=== PATIENT | male | born 1955 | race Caucasian/White ===

== ENCOUNTER 2017-11-09 19:58 | Emergency (ER) | payer OTHER, MEDICAID ==
[2017-11-09] MEDS ORDERED: ASPIRIN 81 MG TABLET, CHEWABLE PO ONE (20:06)
--- NOTE | 2017-11-09 20:37 | ER Document Report ---
ED General <MAURICEDAVID - Last Filed: 11/09/17 23:22> - General Mode of Arrival: Ambulatory Information source: Patient TRAVEL OUTSIDE OF THE [place] IN LAST 30 DAYS: No <JAY BYRD - Last Filed: 11/12/17 14:14> - General Chief Complaint: Painful Cough Stated Complaint: CHEST PAIN Time Seen by Provider: 11/09/17 20:23 Notes: Patient is a 62-year-old male with a history of a cardiac stent (2012, [facility]) presents to the emergency department from assisted complaining of chest pain onset 2 weeks ago worsening 2 days ago. Patient describes his chest pain as chest tightness. According to [facility] records patient had similar symptoms in 2013 which was followed by a negative stress test. (JAY BYRD) - Related Data Allergies/Adverse Reactions: No Known Allergies Allergy (Verified 04/25/14 18:54) Past Medical History - General Information source: Patient - Social History Smoking Status: Unknown if Ever Smoked Family History: Reviewed & Not Pertinent - Past Medical History Cardiac Medical History: Reports: Hx Hypercholesterolemia, Hx Hypertension Pulmonary Medical History: Reports: Hx COPD Renal/ Medical History: Reports: Hx Kidney Stones Psychiatric Medical History: Reports: Hx Depression Past Surgical History: Reports: Hx Cholecystectomy, Hx Kidney (Renal Surgery) - Left Nepherctomy - Immunizations Hx Diphtheria, Pertussis, Tetanus Vaccination: Yes Hx Pneumococcal Vaccination: 04/29/14 <JAY BYRD - Last Filed: 11/12/17 14:14> Review of Systems - Review of Systems Constitutional: No symptoms reported EENT: No symptoms reported Cardiovascular: See HPI, Chest pain Respiratory: No symptoms reported Gastrointestinal: No symptoms reported Genitourinary: No symptoms reported Male Genitourinary: No symptoms reported Musculoskeletal: No symptoms reported Skin: No symptoms reported Hematologic/Lymphatic: No symptoms reported Neurological/Psychological: No symptoms reported -: Yes All other systems reviewed and negative <JAY BYRD - Last Filed: 11/12/17 14:14> Physical Exam - General General appearance: Appears well, Alert In distress: None - HEENT Head: Normocephalic, Atraumatic Eyes: Normal Conjunctiva: Normal Extraocular movements intact: Yes Pupils: PERRL Neck: Normal - Respiratory Respiratory status: No respiratory distress Chest status: Tender - Tender to palpation left parasternal border Breath sounds: Normal Chest palpation: Normal - Cardiovascular Rhythm: Regular Heart sounds: Normal auscultation Murmur: No Friction rub: No Gallop: None auscultated - Back Back: Normal - Extremities General upper extremity: Normal inspection, Normal ROM General lower extremity: Normal inspection, Normal ROM - Neurological Neuro grossly intact: Yes Cognition: Normal Orientation: AAOx4 [place] Coma Scale Eye Opening: Spontaneous Ned Coma Scale Verbal: Oriented Ned Coma Scale Motor: Obeys Commands Ned Coma Scale Total: 15 Speech: Normal - Psychological Associated symptoms: Normal affect, Normal mood - Skin Skin Temperature: Warm Skin Moisture: Dry Skin Color: Normal <JAY BYRD - Last Filed: 11/12/17 14:14> - Vital signs Vitals: Resp Pulse Ox 14 99 11/09/17 20:35 11/09/17 20:35 Course - Laboratory Result Diagrams: 11/09/17 20:45 11/09/17 20:45 - Diagnostic Test Radiology reviewed: Image reviewed, Reports reviewed - Chest x-ray does not show any acute process is unremarkable. - EKG Interpretation by Ks EKG shows normal: Sinus rhythm, [place], Intervals, QRS Complexes, ST-T Waves Rate: Normal - 56 Rhythm: NSR <DAVID RICHARDS - Last Filed: 11/09/17 23:22> - Laboratory Result Diagrams: 11/09/17 20:45 11/09/17 20:45 <JAY BYRD - Last Filed: 11/12/17 14:14> - Vital Signs Vital signs: Temp Pulse Resp BP Pulse Ox 97.8 F 12 136/81 H 99 11/09/17 22:27 11/09/17 22:27 11/09/17 22:27 11/09/17 22:27 - Laboratory Laboratory results interpreted by ny: 11/09/17 20:45 Carbon Dioxide 32 H BUN 22 H Total Protein 6.1 L Discharge <DAVID RICHARDS - Last Filed: 11/09/17 23:22> <JAY BYRD - Last Filed: 11/12/17 14:14> - Discharge Clinical Impression: Chest wall pain Condition: Stable Disposition: HOME, SELF-CARE Additional Instructions: Chest Wall Pain Your chest pain has been diagnosed as coming from the chest wall. This is often caused by straining the muscles or joints in the chest during physical activity, direct trauma, coughing, or vigorous vomiting. Persons with arthritis are especially prone to this type of pain, due to inflammation of the cartilage joints near the breast bone. Occasionally, no cause can be found. Rest from strenuous physical activity. This kind of chest pain is usually made worse by movement of the chest. Depending on the symptoms, we may prescribe medicine for pain, muscle relaxation, and antiinflammatory effects. If the pain is new, and seems to be due to muscle strain, cold packs can help. Otherwise, apply gentle warmth to the painful area for 15 minutes every hour or two. You should contact the doctor immediately if things change. Further evaluation is needed if you develop a fever or cough, if the nature of the pain changes, or if you become short of breath. Your chest pain does not appear to be related to your heart on this visit. Follow-up with the health care providers in the assisted as needed. RETURN TO THE EMERGENCY ROOM IF ANY NEW OR WORSENING SYMPTOMS. Scribe Attestation: 11/09/17 23:22 I personally performed the services described in the documentation, reviewed and edited the documentation which was dictated to the scribe in my presence, and it accurately records my words and actions. (DAVID RICHARDS)
[2017-11-09 20:56] LABS: ABSOLUTE BASOPHILS # (AUTO) 0.1 10^3/uL (0.0-0.2); ABSOLUTE EOSINOPHILS # (AUTO) 0.2 10^3/uL (0.0-0.6); ABSOLUTE LYMPHOCYTES (AUTO) 2.5 10^3/uL (0.5-4.7); ABSOLUTE MONOCYTES (AUTO) 0.8 10^3/uL (0.1-1.4); ABSOLUTE NEUT (AUTO) 5.7 10^3/uL (1.7-8.2); BASOPHILS % (AUTO) 1.2 % (0-2); EOSINOPHILS % (AUTO) 2.6 % (0-6); HEMOGLOBIN 14.7 g/dL (13.5-17.0); MEAN CORPUSCULAR HGB CONC 34.3 g/dL (32.0-36.0); MEAN CORPUSCULAR VOLUME 94 fl (80-97); MONOCYTES % (AUTO) 8.2 % (3-13); PLATELET COUNT 207 10^3/uL (150-450); RED CELL DISTRIBUTION WIDTH 13.8 % (11.5-14.0); TOTAL CELLS COUNTED % (AUTO) 100 %; WHITE BLOOD COUNT 9.4 10^3/uL (4.0-10.5)
[2017-11-09 21:16] LABS: ALANINE AMINOTRANSFERASE 24 U/L (21-72); ALBUMIN 3.6 g/dL (3.5-5.0); ALKALINE PHOSPHATASE 66 U/L (38-126); ANION GAP 9 (5-19); ASPARTATE AMINO TRANSFERASE 20 U/L (17-59); BILIRUBIN,DIRECT 0.3 mg/dL (0.0-0.4); BILIRUBIN,TOTAL 0.4 mg/dL (0.2-1.3); BLOOD UREA NITROGEN 22 mg/dL (7-20); CALCIUM 9.3 mg/dL (8.4-10.2); CARBON DIOXIDE 32 mmol/L (22-30); CHLORIDE 102 mmol/L (98-107); CREATINE KINASE 58 U/L (55-170); GLUCOSE 92 mg/dL (75-110); POTASSIUM 4.2 mmol/L (3.6-5.0); SODIUM 142.5 mmol/L (137-145); TOTAL PROTEIN 6.1 g/dL (6.3-8.2)
--- NOTE | 2017-11-09 21:24 | RADIOLOGY REPORT (SQ) ---
EXAM DESCRIPTION: CHEST SINGLE VIEW COMPLETED DATE/TIME: 11/09/2017 9:16 pm REASON FOR STUDY: cp COMPARISON: 05/06/2014 EXAM PARAMETERS: NUMBER OF VIEWS: One view. TECHNIQUE: Single frontal radiographic view of the chest acquired. RADIATION DOSE: NA LIMITATIONS: None. FINDINGS: LUNGS AND PLEURA: No opacities, masses or pneumothorax. No pleural effusion. MEDIASTINUM AND HILAR STRUCTURES: No masses. Contour normal. HEART AND VASCULAR STRUCTURES: Heart normal in size. Normal vasculature. BONES: No acute findings. HARDWARE: None in the chest. OTHER: No other significant finding. IMPRESSION: NO ACUTE RADIOGRAPHIC FINDING IN THE CHEST. TECHNICAL DOCUMENTATION: JOB ID: [id number] [employer]- All Rights Reserved Reading location - IP/workstation name: [email or web address]
[2017-11-09 21:25] LABS: TROPONIN I < 0.012 ng/mL
[2017-11-09 22:41] VITALS: BP 136/81
--- NOTE | 2017-11-09 23:05 | EKG REPORT ---
SEVERITY:- NORMAL ECG - SINUS RHYTHM CONSIDER INFERIOR CA OLD : Confirmed by: Clary Morrison 09-Nov-2017 23:05:01
== END 2017-11-09 22:30 | disposition home or self-care (01) ==
LOC: ER 19:58
DX: R07.89 Other chest pain (principal); R05 Cough; R06.00 Dyspnea, unspecified; E78.00 Pure hypercholesterolemia, unspecified; I10 Essential (primary) hypertension; J44.9 Chronic obstructive pulmonary disease, unspecified; Z87.442 Personal history of urinary calculi; Z90.49 Acquired absence of other specified parts of digestive tract
CPT/HCPCS: 36415; 71045; 80053; 82550; 82553; 84484; 85025; 93005; 93010; 99285

== ENCOUNTER 2018-02-11 08:10 | Emergency (ER) | payer OTHER, MEDICAID ==
--- NOTE | 2018-02-11 09:06 | ER Document Report ---
ED General - General Chief Complaint: Abdominal Pain Stated Complaint: STOMACH PAIN Time Seen by Provider: 02/11/18 09:01 Notes: 63-year-old incarcerated individual to the emergency department at request of medical at the [facility] for evaluation of abdominal pain. Patient has been complaining of intermittent abdominal pain and change in bowel habits. Had x- ray which was reportedly read as an ileus. No significant pain at this time. No fever, chills, sweats. TRAVEL OUTSIDE OF THE [place] IN LAST 30 DAYS: No - HPI Onset/Duration: Gradual Quality of pain: Achy - Related Data Allergies/Adverse Reactions: No Known Allergies Allergy (Verified 02/11/18 08:11) Past Medical History - General Information source: Patient - Social History Smoking Status: Current Some Day Smoker Chew tobacco use (# tins/day): No Frequency of alcohol use: None Drug Abuse: None Family History: Reviewed & Not Pertinent - Past Medical History Cardiac Medical History: Reports: Hx Hypercholesterolemia, Hx Hypertension Pulmonary Medical History: Reports: Hx COPD Renal/ Medical History: Reports: Hx Kidney Stones. Denies: Hx Peritoneal Dialysis Psychiatric Medical History: Reports: Hx Depression Past Surgical History: Reports: Hx Cholecystectomy, Hx Kidney (Renal Surgery) - Left Nepherctomy - Immunizations Hx Diphtheria, Pertussis, Tetanus Vaccination: Yes Hx Pneumococcal Vaccination: 04/29/14 Review of Systems - Review of Systems Constitutional: No symptoms reported EENT: No symptoms reported Cardiovascular: No symptoms reported Respiratory: No symptoms reported Gastrointestinal: Abdomen distended, Abdominal pain, Constipation Genitourinary: No symptoms reported Male Genitourinary: No symptoms reported Musculoskeletal: No symptoms reported Skin: No symptoms reported Hematologic/Lymphatic: No symptoms reported Neurological/Psychological: No symptoms reported Physical Exam - Vital signs Vitals: Temp Pulse Resp BP Pulse Ox 98.3 F 66 18 122/72 97 02/11/18 08:29 02/11/18 08:29 02/11/18 08:29 02/11/18 08:29 02/11/18 08:29 Interpretation: Normal - General General appearance: Appears well, Alert - HEENT Head: Normocephalic, Atraumatic Eyes: Normal Pupils: PERRL - Respiratory Respiratory status: No respiratory distress Chest status: Nontender Breath sounds: Normal Chest palpation: Normal - Cardiovascular Rhythm: Regular Heart sounds: Normal auscultation Murmur: No - Abdominal Inspection: Normal Distension: No distension Bowel sounds: Normal Tenderness: Nontender Organomegaly: No organomegaly - Back Back: Normal, Nontender - Extremities General upper extremity: Normal inspection, Nontender, Normal color, Normal ROM , Normal temperature General lower extremity: Normal inspection, Nontender, Normal color, Normal ROM , Normal temperature, Normal weight bearing. No: Veto's sign - Neurological Neuro grossly intact: Yes Cognition: Normal Orientation: AAOx4 [place] Coma Scale Eye Opening: Spontaneous Ned Coma Scale Verbal: Oriented [place] Coma Scale Motor: Obeys Commands Ned Coma Scale Total: 15 Speech: Normal Motor strength normal: LUE, RUE, LLE, RLE Sensory: Normal - Psychological Associated symptoms: Normal affect, Normal mood - Skin Skin Temperature: Warm Skin Moisture: Dry Skin Color: Normal Course - Re-evaluation Re-evalutation: 02/11/18 10:21 X-ray has slightly abnormal bowel gas pattern. Spoke with the care home provider who states that the x-ray was done by an outside service and read as an ileus. Will proceed with CT scan at this time. 02/11/18 10:22 Acute Abdomen Series 02/11/18 09:07 IMPRESSION: Nonobstructed, nonspecific, mildly abnormal bowel gas pattern. 02/11/18 14:20 Laboratory 02/11/18 02/11/18 02/11/18 09:25 09:25 09:55 WBC 6.7 RBC 4.63 Hgb 15.1 Hct 43.6 MCV 94 MCH 32.6 MCHC 34.7 RDW 13.8 Plt Count 178 Seg Neutrophils % 67.5 Lymphocytes % 22.4 Monocytes % 7.5 Eosinophils % 2.2 Basophils % 0.4 Absolute Neutrophils 4.5 Absolute Lymphocytes 1.5 Absolute Monocytes 0.5 Absolute Eosinophils 0.1 Absolute Basophils 0.0 Sodium 144.5 Potassium 4.2 Chloride 105 Carbon Dioxide 29 Anion Gap 11 BUN 20 Creatinine 1.14 Est GFR ( Amer) > 60 Est GFR (Non-Af Amer) > 60 Glucose 86 Calcium 9.0 Total Bilirubin 0.6 Direct Bilirubin 0.2 Neonat Total Bilirubin Not Reportable Neonat Direct Bilirubin Not Reportable Neonat Indirect Bili Not Reportable AST 19 ALT 23 Alkaline Phosphatase 72 Total Protein 6.4 Albumin 3.7 Urine Color YELLOW Urine Appearance CLOUDY Urine pH 8.0 Ur Specific [place] 1.009 Urine Protein NEGATIVE Urine Glucose (UA) NEGATIVE Urine Ketones NEGATIVE Urine Blood NEGATIVE Urine Nitrite NEGATIVE Urine Bilirubin NEGATIVE Urine Urobilinogen NEGATIVE Ur Leukocyte Esterase NEGATIVE Urine WBC (Auto) 3 Urine RBC (Auto) 0 Urine Bacteria (Auto) TRACE Amorphous Sediment Auto TRACE Urine Ascorbic Acid NEGATIVE Acute Abdomen Series 02/11/18 09:07 IMPRESSION: Nonobstructed, nonspecific, mildly abnormal bowel gas pattern. Abdomen/Pelvis CT 02/11/18 10:17 IMPRESSION: 1. No CT evidence of acute intra-abdominal process 2. 2.4 cm hypodense mass in the mid right kidney. This may represent a simple cyst however no comparisons are available and this mass is not completely evaluated on this single phase contrast study. Recommend correlation with any prior imaging if available. If no prior imaging is available, a dedicated renal CT or MRI is recommended for further characterization. No significant pathology seen on CT. Incidental finding of renal cyst. This information was given to the patient for follow-up evaluation.. Comfortable at this time discharging. - Vital Signs Vital signs: Temp Pulse Resp BP Pulse Ox 98.3 F 66 18 122/72 97 02/11/18 08:29 02/11/18 08:29 02/11/18 08:29 02/11/18 08:29 02/11/18 08:29 - Laboratory Result Diagrams: 02/11/18 09:25 02/11/18 09:25 Discharge - Discharge Clinical Impression: Intermittent constipation, Renal cyst, left Abdominal pain Qualifiers: Abdominal location: generalized Qualified Code(s): R10.84 - Generalized abdominal pain Condition: Good Disposition: HOME, SELF-CARE Instructions: Abdominal Pain ([facility]) Additional Instructions: Please follow-up with your providers to have repeat evaluation done if symptoms persist. Incidental findings of a cyst was seen on your kidney. This will need a dedicated evaluation in the future as well.
[2018-02-11 09:41] LABS: ABSOLUTE EOSINOPHILS # (AUTO) 0.1 10^3/uL (0.0-0.6); ABSOLUTE LYMPHOCYTES (AUTO) 1.5 10^3/uL (0.5-4.7); ABSOLUTE MONOCYTES (AUTO) 0.5 10^3/uL (0.1-1.4); ABSOLUTE NEUT (AUTO) 4.5 10^3/uL (1.7-8.2); BASOPHILS % (AUTO) 0.4 % (0-2); EOSINOPHILS % (AUTO) 2.2 % (0-6); HEMATOCRIT 43.6 % (37.9-51.0); HEMOGLOBIN 15.1 g/dL (13.5-17.0); LYMPHOCYTES % (AUTO) 22.4 % (13-45); MEAN CORPUSCULAR HEMOGLOBIN 32.6 pg (27.0-33.4); MEAN CORPUSCULAR HGB CONC 34.7 g/dL (32.0-36.0); MEAN CORPUSCULAR VOLUME 94 fl (80-97); MONOCYTES % (AUTO) 7.5 % (3-13); PLATELET COUNT 178 10^3/uL (150-450); RED BLOOD COUNT 4.63 10^6/uL (4.35-5.55); RED CELL DISTRIBUTION WIDTH 13.8 % (11.5-14.0); SEGMENTED NEUTROPHILS % (AUTO) 67.5 % (42-78); TOTAL CELLS COUNTED % (AUTO) 100 %; WHITE BLOOD COUNT 6.7 10^3/uL (4.0-10.5)
--- NOTE | 2018-02-11 09:55 | RADIOLOGY REPORT (SQ) ---
EXAM DESCRIPTION: ACUTE ABDOMEN SERIES COMPLETED DATE/TIME: 02/11/2018 9:45 am REASON FOR STUDY: abd pain COMPARISON: None. NUMBER OF VIEWS: Three views. TECHNIQUE: Frontal chest, supine abdomen and upright/decubitus abdomen radiographic images acquired. LIMITATIONS: None. FINDINGS: CHEST: Lungs clear of infiltrates. FREE AIR: None. No abnormal gas collections. BOWEL GAS PATTERN: There are no dilated loops of small bowel or air-fluid levels, however there are m ultiple prominent air-filled loops of small bowel in the left lower quadrant. CALCIFICATIONS: No suspicious calcifications. HARDWARE: Surgical clips in the right upper quadrant. SOFT TISSUES: No gross mass or suggestion of organomegaly. BONES: No acute fracture. No worrisome bone lesions. OTHER: No other significant finding. IMPRESSION: Nonobstructed, nonspecific, mildly abnormal bowel gas pattern. TECHNICAL DOCUMENTATION: JOB ID: [id number] [employer]- All Rights Reserved Reading location - IP/workstation name: [email or web address]
[2018-02-11 09:58] LABS: ALANINE AMINOTRANSFERASE 23 U/L (21-72); ALBUMIN 3.7 g/dL (3.5-5.0); ALKALINE PHOSPHATASE 72 U/L (38-126); ANION GAP 11 (5-19); ASPARTATE AMINO TRANSFERASE 19 U/L (17-59); BILIRUBIN,DIRECT 0.2 mg/dL (0.0-0.4); BILIRUBIN,TOTAL 0.6 mg/dL (0.2-1.3); BLOOD UREA NITROGEN 20 mg/dL (7-20); CARBON DIOXIDE 29 mmol/L (22-30); CHLORIDE 105 mmol/L (98-107); GLUCOSE 86 mg/dL (75-110); POTASSIUM 4.2 mmol/L (3.6-5.0); SODIUM 144.5 mmol/L (137-145); TOTAL PROTEIN 6.4 g/dL (6.3-8.2)
[2018-02-11 10:16] LABS: AMORPHOUS SEDIMENT,URINE TRACE /HPF; APPEARANCE,URINE CLOUDY; BILIRUBIN,URINE NEGATIVE (NEGATIVE); COLOR,URINE YELLOW; GLUCOSE, URINE NEGATIVE (NEGATIVE); KETONES,URINE NEGATIVE (NEGATIVE); LEUKOCYTE ESTERASE,URINE NEGATIVE (NEGATIVE); NITRITE,URINE NEGATIVE (NEGATIVE); PROTEIN,URINE NEGATIVE (NEGATIVE); URINE SPECIFIC GRAVITY 1.009; UROBILINOGEN,URINE NEGATIVE mg/dL (<2.0)
--- NOTE | 2018-02-11 14:04 | RADIOLOGY REPORT (SQ) ---
EXAM DESCRIPTION: CT ABD/PELVIS WITH IV ORAL COMPLETED DATE/TIME: 02/11/2018 1:33 pm REASON FOR STUDY: abd pain , ? Ileus on outside films COMPARISON: 02/11/2018 TECHNIQUE: CT scan of the abdomen and pelvis performed using helical scanning technique with dynamic intravenous contrast injection. No oral contrast. Images reviewed with lung, soft tissue, and bone windows. Reconstructed coronal and sagittal MPR images reviewed. Delayed images for evaluation of the urinary system also acquired. All images stored on PACS. All CT scanners at this facility use dose modulation, iterative reconstruction, and/or weight based d osing when appropriate to reduce radiation dose to as low as reasonably achievable (ALARA). [facility]: Dose Right [facility]: CareDose [facility]: Dose Right [facility]: Teradose 4D [facility]: Dely CONTRAST TYPE AND DOSE: contrast/concentration: Isovue 300.00 mg/ml; Total Contrast Delivered: 97.0 ml; Total Saline Delivered: 66.0 ml RENAL FUNCTION: GFR > 60. RADIATION DOSE: CT Rad equipment meets quality standard of care and radiation dose reduction techniq ues were employed. CTDIvol: 20.6 - 20.8 mGy. DLP: 2315 mGy-cm.. LIMITATIONS: None. FINDINGS: LOWER CHEST: Some scarring in the lung bases. There is a calcified granuloma noted in the right lung base as well. LIVER: Normal size. No masses. No dilated ducts. SPLEEN: Normal size. No focal lesions. PANCREAS: No masses. No significant calcifications. No adjacent inflammation or peripancreatic fluid collections. Pancreatic duct not dilated. GALLBLADDER: Surgically absent. ADRENAL GLANDS: No significant masses or asymmetry. RIGHT KIDNEY AND URETER: There is a 2.4 cm hypodense mass in the mid right kidney. This is not clear ly a simple cyst on this examination. No significant calcifications. No hydronephrosis or hydrour eter. LEFT KIDNEY AND URETER: The left kidney is absent. AORTA AND VESSELS: No aneurysm or dissection. RETROPERITONEUM: No retroperitoneal adenopathy, hemorrhage or masses. BOWEL AND PERITONEAL CAVITY: No masses or inflammatory changes. No free fluid or peritoneal masses. APPENDIX: Not visualized. PELVIS: No mass. No free fluid. Normal bladder. ABDOMINAL WALL: No masses. No hernias. BONES: No significant or acute findings. OTHER: No other significant finding. IMPRESSION: 1. No CT evidence of acute intra-abdominal process 2. 2.4 cm hypodense mass in the mid right kidney. This may represent a simple cyst however no chano risons are available and this mass is not completely evaluated on this single phase contrast study. Recommend correlation with any prior imaging if available. If no prior imaging is available, a dedic ated renal CT or MRI is recommended for further characterization. TECHNICAL DOCUMENTATION: JOB ID: [id number] Quality ID # [id number]: Final reports with documentation of one or more dose reduction techniques (e.g., Au tomated exposure control, adjustment of the mA and/or kV according to patient size, use of iterative reconstruction technique) 2010 [employer]- All Rights Reserved Reading location - IP/workstation name: [email or web address]
[2018-02-11 15:30] VITALS: BP 125/59
== END 2018-02-11 15:30 | disposition home or self-care (01) ==
LOC: ER 08:10
DX: K59.00 Constipation, unspecified (principal); Q61.01 Congenital single renal cyst; R10.84 Generalized abdominal pain; F17.200 Nicotine dependence, unspecified, uncomplicated; I10 Essential (primary) hypertension; Z87.442 Personal history of urinary calculi; Z90.49 Acquired absence of other specified parts of digestive tract; Z90.5 Acquired absence of kidney
CPT/HCPCS: 36415; 74022; 74177; 80053; 81001; 85025; 99285

== ENCOUNTER → 2018-03-01 | Outpatient (CLI) | payer OTHER ==
--- NOTE | 2018-03-01 17:25 | RADIOLOGY REPORT (SQ) ---
EXAM DESCRIPTION: CT ABD/PELVIS COMBO COMPLETED DATE/TIME: 03/01/2018 10:24 am REASON FOR STUDY: RENAL MASS COMPARISON: 02/11/2018 TECHNIQUE: CT scan of the abdomen and pelvis performed with and without intravenous contrast, and wi thout oral contrast. Contrasted imaging performed helical scanning technique and dynamic intravenous contrast injection. Images reviewed with lung, soft tissue, and bone windows. Reconstructed coronal a nd sagittal MPR images reviewed. Delayed images for evaluation of the urinary system also acquired. A ll images stored on PACS. All CT scanners at this facility use dose modulation, iterative reconstruction, and/or weight based d osing when appropriate to reduce radiation dose to as low as reasonably achievable (ALARA). [facility]: Dose Right [facility]: CareDose [facility]: Dose Right [facility]: Teradose 4D [facility]: Zoomingo CONTRAST TYPE AND DOSE: contrast/concentration: Isovue 300.00 mg/ml; Total Contrast Delivered: 59.0 ml; Total Saline Delivered: 80.0 ml RENAL FUNCTION: Creatinine 1.1 RADIATION DOSE: CT Rad equipment meets quality standard of care and radiation dose reduction techniq ues were employed. CTDIvol: 19.6 - 45.1 mGy. DLP: 4757 mGy-cm. . LIMITATIONS: None. FINDINGS: NON-CONTRASTED IMAGING: No significant renal or bladder calcifications. No other significa nt organ calcifications. POST-CONTRASTED IMAGING: LOWER CHEST: 1 cm calcified granuloma anterior right lung base LIVER: Normal size. No masses. No dilated ducts. SPLEEN: Normal size. No focal lesions. PANCREAS: No masses. No significant calcifications. No adjacent inflammation or peripancreatic fluid collections. Pancreatic duct not dilated. GALLBLADDER: Surgically absent ADRENAL GLANDS: No significant masses or asymmetry. RIGHT KIDNEY AND URETER: No solid masses. 2.5 cm x 2 cm nonenhancing right posterior midpole cyst wi th punctate calcification in the posterior wall this is similar compared to 02/11/2018. Less than 1 c m cysts are also seen in the right midpole and right lower pole kidney of doubtful clinical significa nce. No right urinary stones No hydronephrosis or hydroureter. LEFT KIDNEY AND URETER: Post nephrectomy. AORTA AND VESSELS: No aneurysm. No dissection. Renal arteries, SMA, celiac without stenosis. RETROPERITONEUM: No retroperitoneal adenopathy, hemorrhage or masses. BOWEL AND PERITONEAL CAVITY: No masses or inflammatory changes. No free fluid or peritoneal masses. APPENDIX: Not identified. No right lower quadrant inflammatory change PELVIS: No mass. No free fluid. Normal bladder. ABDOMINAL WALL: No masses. No hernias. BONES: No significant or acute findings. OTHER: No other significant finding. IMPRESSION: Old left nephrectomy and post cholecystectomy. 2.5 x 2 cm cyst with punctate calcification in its posterior wall, along the right posterior mid pole kidney. No worrisome contrast enhancement. This could be followed with periodic renal ultrasound TECHNICAL DOCUMENTATION: JOB ID: [id number] Quality ID # [id number]: Final reports with documentation of one or more dose reduction techniques (e.g., Au tomated exposure control, adjustment of the mA and/or kV according to patient size, use of iterative reconstruction technique) 2010 [employer] All Rights Reserved Reading location - IP/workstation name: [email or web address]
== END ==
LOC: RAD 09:50
PROVIDERS: ATTEND Family Medicine
DX: N28.9 Disorder of kidney and ureter, unspecified (principal)
CPT/HCPCS: 74178

== ENCOUNTER 2018-05-18 22:53 | Inpatient (IN) | payer OTHER ==
--- NOTE | 2018-05-18 23:13 | ER Document Report ---
ED General - General Stated Complaint: CHEST PAIN Time Seen by Provider: 05/18/18 23:01 Notes: Patient is a 63-year-old male who presents with complaint of some dyspnea and chest pain. He says he is felt like a pressure in his chest has been ongoing for approximately a week. Says is been intermittent. He is from skilled nursing. He does have history of a heart attack with a stent placed in 2012. He is currently not on any blood thinners. He does not been taking daily aspirin. His med list from skilled nursing shows that he is on minocycline, Bactrim, Lasix, and Zantac. He says that they recently placed him on minocycline and Zantac because of some pressure is having in his lower chest and epigastric region. He also says he thinks he was placed on the Bactrim because he smashed his finger in a door. TRAVEL OUTSIDE OF THE [place] IN LAST 30 DAYS: No - Related Data Allergies/Adverse Reactions: No Known Allergies Allergy (Verified 02/11/18 08:11) Past Medical History - Social History Smoking Status: Former Smoker Frequency of alcohol use: None Drug Abuse: None Family History: Reviewed & Not Pertinent - Past Medical History Cardiac Medical History: Reports: Hx Heart Attack - 2011 with one stent, Hx Hypercholesterolemia, Hx Hypertension Pulmonary Medical History: Reports: Hx COPD Renal/ Medical History: Reports: Hx Kidney Stones. Denies: Hx Peritoneal Dialysis Psychiatric Medical History: Reports: Hx Depression Past Surgical History: Reports: Hx Cholecystectomy, Hx Kidney (Renal Surgery) - Left Nepherctomy - Immunizations Hx Diphtheria, Pertussis, Tetanus Vaccination: Yes Hx Pneumococcal Vaccination: 04/29/14 Review of Systems - Review of Systems Notes: My Normal Review Basic REVIEW OF SYSTEMS: CONSTITUTIONAL : Denies fever, chills, or sweats. Denies recent illness. EENT: Denies eye, ear, throat, or mouth pain or symptoms. Denies nasal or sinus congestion. CARDIOVASCULAR: chest Pressure RESPIRATORY: Some dyspnea GASTROINTESTINAL: Denies abdominal pain. Denies nausea, vomiting, or diarrhea. MUSCULOSKELETAL: Denies neck or back pain or joint pain or swelling. SKIN: Denies rash or skin lesions. NEUROLOGICAL: Denies altered mental status or loss of consciousness. Denies headache. Denies weakness or paralysis or loss of use of either side. Denies problems with gait or speech. Denies sensory or motor loss. ALL OTHER SYSTEMS REVIEWED AND NEGATIVE. Physical Exam - Vital signs Vitals: Temp Pulse Resp BP Pulse Ox 97.7 F 120 H 16 110/70 98 05/18/18 23:04 05/18/18 23:04 05/18/18 23:04 05/18/18 23:04 05/18/18 23:04 - Notes Notes: General Appearance: Well nourished, alert, cooperative, no acute distress, no obvious discomfort. Well-appearing. Vitals: reviewed, See vital signs table. Head: no swelling or tenderness to the head Eyes: PERRL, EOMI, Conjuctiva clear Mouth: No decreasd moisture Lungs: No wheezing, No rales, No rhonci, No accessory muscle use, good air exchange bilaterally. Heart: Rapid rate, Irregular rythm, No murmur, no rub Abdomen: Normal BS, soft, No rigidity, No abdominal tenderness, No guarding, no rebound, no abdominal masses, no organomegaly Extremities: strength 5/5 in all extremities, good pulses in all extremities, no swelling or tenderness in the extremities, 2+ bilateral LE edema. Skin: warm, dry, appropriate color, no rash Neuro: speech clear, oriented x 3, normal affect, responds appropriately to questions. Course - Re-evaluation Re-evalutation: 05/19/18 01:50 Patient's atrial fibrillation resolved with the Cardizem bolus. Cardizem drip was therefore not started. Repeat EKG does show any ischemic findings. Chest x -ray does show some pulmonary vascular congestion. I therefore have given Lasix. Patient currently chest pain-free and looks well. I did speak with the hospitalist, Dr. Joseph, agrees with the patient. He requests a TSH and a tox screen. Those have been ordered. Patient informed of admission and he is agreeable with this. Dictation of this chart was performed using voice recognition software; therefore, there may be some unintended grammatical errors. - Vital Signs Vital signs: Temp Pulse Resp BP Pulse Ox 97.7 F 66 18 104/67 94 05/18/18 23:04 05/18/18 23:51 05/19/18 00:01 05/19/18 00:01 05/19/18 00:01 - Laboratory Result Diagrams: 05/18/18 23:13 05/19/18 00:30 Laboratory results interpreted by me: 05/19/18 00:30 ALT 18 L Total Protein 6.0 L Albumin 3.3 L - EKG Interpretation by Me Additional EKG results interpreted by me: 05/18/18 23:12 EKG is reviewed and interpreted by me. EKG shows atrial fibrillation with rapid ventricular response with a rate of [address] segment elevation or depression. No ischemic T wave inversions. QRS duration is within normal range. QTc interval is slightly prolonged. No old EKG available for comparison. 05/19/18 00:36 EKG #2 is reviewed and interpreted by me. EKG shows sinus rhythm with a rate of 59 bpm. EKG is post Cardizem bolus. No ST segment elevation or depression. No ischemic T wave inversions. [place] interval, QRS duration, QTc intervals are within normal range. Discharge - Discharge Clinical Impression: Chest pain Qualifiers: Chest pain type: unspecified Qualified Code(s): R07.9 - Chest pain, unspecified Atrial fibrillation Qualifiers: Atrial fibrillation type: paroxysmal Qualified Code(s): I48.0 - Paroxysmal atrial fibrillation Condition: Stable Disposition: ADMITTED OBSERVATION Admitting Provider: Hospitalist Unit Admitted: IMCU Referrals: GILDARDO PIERSON MD [NO LOCAL MD] - Follow up as needed
[2018-05-18] MEDS ORDERED: DILTIAZEM HCL INJ 25 MG/5 ML VIAL IV ONE (23:14)
[2018-05-18] MEDS ORDERED: DILTIAZEM HCL/D5W 125 MG/125 ML RTUINJ IV PRN (23:14)
[2018-05-18 23:29] LABS: ABSOLUTE BASOPHILS # (AUTO) 0.1 10^3/uL (0.0-0.2); ABSOLUTE EOSINOPHILS # (AUTO) 0.2 10^3/uL (0.0-0.6); ABSOLUTE LYMPHOCYTES (AUTO) 2.4 10^3/uL (0.5-4.7); ABSOLUTE MONOCYTES (AUTO) 0.6 10^3/uL (0.1-1.4); ABSOLUTE NEUT (AUTO) 4.2 10^3/uL (1.7-8.2); BASOPHILS % (AUTO) 0.9 % (0-2); EOSINOPHILS % (AUTO) 3.1 % (0-6); HEMATOCRIT 43.4 % (37.9-51.0); HEMOGLOBIN 14.9 g/dL (13.5-17.0); LYMPHOCYTES % (AUTO) 32.3 % (13-45); MEAN CORPUSCULAR HEMOGLOBIN 32.4 pg (27.0-33.4); MEAN CORPUSCULAR HGB CONC 34.4 g/dL (32.0-36.0); MEAN CORPUSCULAR VOLUME 94 fl (80-97); MONOCYTES % (AUTO) 8.6 % (3-13); PLATELET COUNT 204 10^3/uL (150-450); RED BLOOD COUNT 4.61 10^6/uL (4.35-5.55); RED CELL DISTRIBUTION WIDTH 13.7 % (11.5-14.0); SEGMENTED NEUTROPHILS % (AUTO) 55.1 % (42-78); TOTAL CELLS COUNTED % (AUTO) 100 %; WHITE BLOOD COUNT 7.6 10^3/uL (4.0-10.5)
[2018-05-18] MEDS ORDERED: DILTIAZEM HCL/D5W 125 MG/125 ML RTUINJ IV ONE (23:41)
[2018-05-19 00:51] LABS: ALANINE AMINOTRANSFERASE 18 U/L (21-72); ALBUMIN 3.3 g/dL (3.5-5.0); ALKALINE PHOSPHATASE 78 U/L (38-126); ANION GAP 9 (5-19); ASPARTATE AMINO TRANSFERASE 27 U/L (17-59); BILIRUBIN,TOTAL 0.3 mg/dL (0.2-1.3); BLOOD UREA NITROGEN 19 mg/dL (7-20); CALCIUM 8.6 mg/dL (8.4-10.2); CARBON DIOXIDE 29 mmol/L (22-30); CHLORIDE 106 mmol/L (98-107); GLUCOSE 108 mg/dL (75-110); POTASSIUM 3.8 mmol/L (3.6-5.0); SODIUM 144.4 mmol/L (137-145)
[2018-05-19] MEDS ORDERED: FUROSEMIDE INJ/PF 20 MG/2 ML SDV IV ONE (01:44)
--- NOTE | 2018-05-19 01:53 | RADIOLOGY REPORT (SQ) ---
CLINICAL HISTORY: chest pain COMPARISON: None. TECHNIQUE: XR CHEST 1 VIEW 05/18/2018 11:35 PM CDT FINDINGS: Cardiac silhouette is normal in size. Lungs are clear without consolidation, atelectasis, mass or edema. There is no pleural effusion. There is no pneumothorax. There are no acute osseous findings. IMPRESSION: Clear lungs.
[2018-05-19] MEDS ORDERED: DILTIAZEM HCL/D5W 125 MG/125 ML RTUINJ IV PRN (02:01)
[2018-05-19] MEDS ORDERED: MAG HYDROX/AL HYDROX/SIMETH SUSP 30 ML UDCUP PO PRN (02:01)
[2018-05-19] MEDS ORDERED: ATORVASTATIN CALCIUM 80 MG TABLET PO ONE (02:15)
[2018-05-19 02:18] LABS: URINE AMPHETAMINES SCREEN NEGATIVE; URINE BARBITURATES SCREEN NEGATIVE; URINE BENZODIAZEPINES SCREEN NEGATIVE; URINE COCAINE SCREEN NEGATIVE; URINE MARIJUANA (THC) SCREEN NEGATIVE; URINE METHADONE SCREEN NEGATIVE; URINE PHENCYCLIDINE SCREEN NEGATIVE
[2018-05-19 02:37] LABS: CREATINE KINASE MB 0.88 ng/mL (<4.55)
[2018-05-19 02:41] LABS: TROPONIN I < 0.012 ng/mL
--- NOTE | 2018-05-19 03:37 | PDOC H&P ---
History of Present Illness Admission Date/PCP: 05/19/18 02:03 Patient complains of: Chest pain History of Present Illness: BRIANA SUAREZ is a 63 year old male with a past medical history of diastolic heart failure, polycystic kidney disease status post right sided nephrectomy, coronary artery disease with stents in 2009. He presents in custody of [employer] with a 7-day history of palpitations and chest pain. He was diagnosed with GERD and failed proton pump inhibitor. In the emergency room he is found to have A. fib with RVR with left-sided chest pain. He receives IV diltiazem relieving pain and converting to normal sinus rhythm. He is referred to the hospitalist for admission. Patient denies a history of atrial fibrillation, recent change in medications, drug use, alcohol or caffeine. Past Medical History Cardiac Medical History: Reports: Congestive Heart Failure, Coronary Artery Disease, Myocardial Infarction - 2011 with one stent, Hyperlipidema, Hypertension Pulmonary Medical History: Reports: Chronic Obstructive Pulmonary Disease (COPD) Psychiatric Medical History: Reports: Depression Denies: Substance Abuse, Tobacco Dependency Past Surgical History Past Surgical History: Reports: Cholecystectomy Social History Information Source: Patient, Emergency Med Personnel, [facility] Records Lives with: Other - [employer] [place] [employer] Smoking Status: Former Smoker Frequency of Alcohol Use: None Drugs: None - Advance Directive Resuscitation Status: Full Code Family History Family History: CAD, Other - Polycystic kidney disease and stroke Parental Family History Reviewed: Yes Children Family History Reviewed: Yes Sibling(s) Family History Reviewed.: Yes Medication/Allergy Home Medications: Furosemide [Lasix 40 mg Tablet] 40 mg PO DAILY 05/19/18 Polyethylene Glycol 3350 [Clearlax] 34 gm PO DAILY 05/19/18 Allergies/Adverse Reactions: No Known Allergies Allergy (Verified 02/11/18 08:11) Review of Systems Constitutional: ABSENT: chills, fever(s), headache(s), weight gain, weight loss Eyes: ABSENT: visual disturbances Ears: ABSENT: hearing changes Cardiovascular: ABSENT: chest pain, dyspnea on exertion, edema, orthropnea, palpitations Respiratory: ABSENT: cough, hemoptysis Gastrointestinal: ABSENT: abdominal pain, constipation, diarrhea, hematemesis, hematochezia, nausea, vomiting Genitourinary: ABSENT: dysuria, hematuria Musculoskeletal: ABSENT: joint swelling Integumentary: ABSENT: rash, wounds Neurological: ABSENT: abnormal gait, abnormal speech, confusion, dizziness, focal weakness, syncope Psychiatric: ABSENT: anxiety, depression, homidical ideation, suicidal ideation Endocrine: ABSENT: cold intolerance, heat intolerance, polydipsia, polyuria Hematologic/Lymphatic: ABSENT: easy bleeding, easy bruising Physical Exam Vital Signs: Temp Pulse Resp BP Pulse Ox 97 F L 50 L 20 120/61 100 05/19/18 03:14 05/19/18 03:14 05/19/18 03:14 05/19/18 03:14 05/19/18 03:14 General appearance: PRESENT: no acute distress, well-developed, well-nourished Head exam: PRESENT: atraumatic, normocephalic Eye exam: PRESENT: conjunctiva pink, EOMI, PERRLA. ABSENT: scleral icterus Ear exam: PRESENT: normal external ear exam Mouth exam: PRESENT: moist, tongue midline Neck exam: ABSENT: carotid bruit, JVD, lymphadenopathy, thyromegaly Respiratory exam: PRESENT: clear to auscultation tank. ABSENT: rales, rhonchi, wheezes Cardiovascular exam: PRESENT: RRR. ABSENT: diastolic murmur, rubs, systolic murmur Pulses: PRESENT: normal dorsalis pedis pul Vascular exam: PRESENT: normal capillary refill GI/Abdominal exam: PRESENT: normal bowel sounds, soft. ABSENT: distended, guarding, mass, organolmegaly, rebound, tenderness Rectal exam: PRESENT: deferred Extremities exam: PRESENT: full ROM. ABSENT: calf tenderness, clubbing, pedal edema Neurological exam: PRESENT: alert, awake, oriented to person, oriented to place , oriented to time, oriented to situation, CN II-XII grossly intact. ABSENT: motor sensory deficit Psychiatric exam: PRESENT: appropriate affect, normal mood. ABSENT: homicidal ideation, suicidal ideation Skin exam: PRESENT: dry, intact, warm. ABSENT: cyanosis, rash Results Impressions: Chest X-Ray 05/18/18 23:35 IMPRESSION: Clear lungs. Assessment & Plan - Diagnosis (1) Atrial fibrillation Qualifiers: Atrial fibrillation type: paroxysmal Qualified Code(s): I48.0 - Paroxysmal atrial fibrillation Is this a current diagnosis for this admission?: Yes Plan: IMCU admission, transition to beta-buffy as now in sinus rhythm, Lovenox, follow-up echocardiogram, TSH and cardiac enzymes (2) Diastolic heart failure Is this a current diagnosis for this admission?: Yes Plan: Follow-up echocardiogram (3) Chest pain Qualifiers: Chest pain type: unspecified Qualified Code(s): R07.9 - Chest pain, unspecified Is this a current diagnosis for this admission?: Yes Plan: Most likely secondary to uncontrolled A. fib with RVR. Serial cardiac enzymes (4) HTN (hypertension) Is this a current diagnosis for this admission?: Yes Plan: Beta-buffy and KATHARINE inhibitor - Time Time Spent: 50 to 70 Minutes - Inpatient Certification Medical Necessity: Need Close Monitoring Due to Risk of Patient Decompensation
[2018-05-19 07:06] LABS: CREATINE KINASE MB 0.82 ng/mL (<4.55); TROPONIN I 0.014 ng/mL
[2018-05-19 07:20] LABS: CHOLESTEROL 125.97 mg/dL (0-200); CREATINE KINASE 41 U/L (55-170); TRIGLYCERIDES 109 mg/dL (<150)
[2018-05-19 07:31] LABS: DIRECT LDL 47 mg/dL (<100)
[2018-05-19] MEDS ORDERED: ENOXAPARIN SODIUM INJ 120 MG/0.8 ML DISP.SYRIN SUBCUT SCH (10:00)
[2018-05-19] MEDS ORDERED: METOPROLOL TARTRATE 25 MG TABLET PO SCH ×3 (10:00→22:00)
[2018-05-19] MEDS ORDERED: ACETAMINOPHEN 325 MG TABLET ONE (10:26)
[2018-05-19] MEDS: ASPIRIN 325 MG TABLET, ENT COATED PO SCH (10:26)
[2018-05-19] MEDS: LOSARTAN POTASSIUM 25 MG TABLET PO SCH (10:26)
[2018-05-19] MEDS: DOCUSATE SODIUM 100 MG CAPSULE PO SCH ×2 (10:26→17:21)
[2018-05-19] MEDS ORDERED: ACETAMINOPHEN 325 MG TABLET PO PRN (10:33)
--- NOTE | 2018-05-19 11:58 | PDOC PROGRESS REPORT ---
Subjective Progress Note for:: 05/19/18 Subjective:: BRIANA SUAREZ is a 63 year old male with a past medical history of diastolic heart failure, polycystic kidney disease status post right sided nephrectomy, coronary artery disease with stents in 2009. He presents in custody of [place] [employer] with a 7-day history of palpitations and chest pain. He was diagnosed with GERD and failed proton pump inhibitor. In the emergency room he is found to have A. fib with RVR with left-sided chest pain Patient spontaneously converted after Cardizem IV bolus. He then developed bradycardia at 40 currently in the low 50s. Cardiology has been consulted patient's troponins are negative x3 Reason For Visit: CHEST PAIN, ATRIAL FIBRILLATION Physical Exam Vital Signs: Temp Pulse Resp BP Pulse Ox 97.8 F 48 L 18 107/58 L 100 05/19/18 07:24 05/19/18 07:24 05/19/18 07:24 05/19/18 07:24 05/19/18 07:24 Intake & Output 05/18/18 05/19/18 05/20/18 06:59 06:59 06:59 Output Total 200 Balance -200 Weight 109.1 kg General appearance: PRESENT: no acute distress, well-developed, well-nourished Eye exam: PRESENT: conjunctiva pink, EOMI, PERRLA. ABSENT: scleral icterus Neck exam: ABSENT: carotid bruit, JVD, lymphadenopathy, thyromegaly Respiratory exam: PRESENT: clear to auscultation tank. ABSENT: rales, rhonchi, wheezes Cardiovascular exam: PRESENT: bradycardia, RRR. ABSENT: diastolic murmur, rubs , systolic murmur GI/Abdominal exam: PRESENT: normal bowel sounds, soft. ABSENT: distended, guarding, mass, organolmegaly, rebound, tenderness Extremities exam: PRESENT: full ROM, pedal edema, +1 edema. ABSENT: calf tenderness, clubbing Neurological exam: PRESENT: alert, awake, oriented to person, oriented to place , oriented to time, oriented to situation, CN II-XII grossly intact. ABSENT: motor sensory deficit Results Laboratory Results: 05/19/18 06:25 Triglycerides 109 Cholesterol 125.97 LDL Cholesterol Direct 47 VLDL Cholesterol 22.0 HDL Cholesterol 43 05/19/18 05/19/18 06:25 06:25 Creatine Kinase 41 L CK-MB (CK-2) 0.82 Troponin I 0.014 Impressions: Chest X-Ray 05/18/18 23:35 IMPRESSION: Clear lungs. Assessment & Plan - Diagnosis (1) Atrial fibrillation Qualifiers: Atrial fibrillation type: paroxysmal Qualified Code(s): I48.0 - Paroxysmal atrial fibrillation Is this a current diagnosis for this admission?: Yes Plan: Spontaneously converted to sinus. Patient will require anticoagulation. Cardiology consulted stress test planned. Because of the underlying bradycardia may need Rythmol as his antiarrhythmic but will wait for cardiology. (2) Chest pain Qualifiers: Chest pain type: unspecified Qualified Code(s): R07.9 - Chest pain, unspecified Is this a current diagnosis for this admission?: Yes Plan: History of coronary artery disease stress test planned. (3) Diastolic heart failure Is this a current diagnosis for this admission?: Yes (4) HTN (hypertension) Is this a current diagnosis for this admission?: Yes Plan: Blood pressure currently low normal. Patient having bradycardia will decrease metoprolol to 12.5 mg twice daily echocardiogram pending (5) Coronary artery disease Is this a current diagnosis for this admission?: Yes Plan: Patient's cholesterol appears to be at goal. A history of stents placed in the past cardiology has been consulted a stress test is planned. (6) Obesity (BMI 30-39.9) Is this a current diagnosis for this admission?: Yes Plan: Patient has undergone significant weight loss. Might have obstructive sleep apnea. Will perform overnight oximetry with report on room air tonight. - Time Time Spent with patient: 25-34 minutes
--- NOTE | 2018-05-19 14:24 | EKG REPORT ---
SEVERITY:- ABNORMAL ECG - SINUS BRADYCARDIA INFERIOR INFARCT, AGE INDETERMINATE : Confirmed by: Clary Morrison 19-May-2018 14:24:28
--- NOTE | 2018-05-19 14:26 | EKG REPORT ---
SEVERITY:- ABNORMAL ECG - ATRIAL FIBRILLATION PROBABLE INFERIOR INFARCT, AGE INDETERMINATE : Confirmed by: Clary Morrison 19-May-2018 14:25:04
[2018-05-19 15:02] LABS: CREATINE KINASE MB 0.98 ng/mL (<4.55); TROPONIN I < 0.012 ng/mL
[2018-05-19] MEDS: APIXABAN 5 MG TABLET PO SCH (17:21)
--- NOTE | 2018-05-19 19:48 | PDOC CONSULTATION ---
Consultation Consult Date: 05/19/18 Attending physician:: AMOL PARSON Consult reason:: Chest pain and atrial fibrillation History of Present Illness Admission Date/PCP: 05/19/18 02:03 Patient complains of: Chest pain and atrial fibrillation History of Present Illness: BRIANA SUAREZ is a 63 year old male with a past medical history of diastolic heart failure, polycystic kidney disease status post right sided nephrectomy, coronary artery disease with stents in 2009. He presents in custody of [place] [employer] with a 7-day history of palpitations and chest pain. He was diagnosed with GERD and failed proton pump inhibitor. In the emergency room he is found to have A. fib with RVR with left-sided chest pain Patient spontaneously converted after Cardizem IV bolus. He then developed bradycardia at 40 currently in the low 50s. Cardiology has been consulted patient's troponins are negative x3. This history was reviewed and confirmed. Patient denied any history of syncope , near syncope. Currently is chest pain-free. Past Medical History Cardiac Medical History: Reports: Congestive Heart Failure, Coronary Artery Disease, Myocardial Infarction - 2011 with one stent, Hyperlipidema, Hypertension Pulmonary Medical History: Reports: Chronic Obstructive Pulmonary Disease (COPD) Psychiatric Medical History: Reports: Depression - when Denies: Substance Abuse, Tobacco Dependency Past Surgical History Past Surgical History: Reports: Cholecystectomy, Coronary Stent Social History Information Source: Patient Lives with: Other - [facility] Smoking Status: Former Smoker Last Time Smoked: 20 years Frequency of Alcohol Use: Occasional Hx Recreational Drug Use: No Drugs: None Hx Prescription Drug Abuse: No - Advance Directive Resuscitation Status: Full Code Family History Family History: CAD, Other - Polycystic kidney disease and stroke Parental Family History Reviewed: Yes Children Family History Reviewed: Yes Sibling(s) Family History Reviewed.: Yes Medication/Allergy Home Medications: Furosemide [Lasix 40 mg Tablet] 40 mg PO DAILY 05/19/18 Polyethylene Glycol 3350 [Clearlax] 34 gm PO DAILY 05/19/18 Allergies/Adverse Reactions: No Known Allergies Allergy (Verified 02/11/18 08:11) Review of Systems Review of Systems: Please see history of present illness and past medical history as wall. Constitutional: No fever or chills reported. Head : No recent chronic headaches, recent head injury. Eyes: No recent eye pain, diplopia, redness, discharge, acute visual changes. Ears: No recent chronic ear pain, acute hearing loss, ear discharge. Oral cavity: No recent ulcerations, bleeding, oral cavity discomfort. Neck: No recent acute neck pain reported. Hematologic: No recent easy bruising or bleeding. Lymphatic: No recent lymph node enlargement reported. Cardiovascular system review: See history of present illness. Respiratory system review: No hemoptysis or blood clots in the lungs reported. Mild Shortness of breath on exertion Gastrointestinal system review: Negative for any recent acute hematemesis, melena. Genitourinary system review: No recent acute or chronic hematuria, flank pain, UTI etc. reported. Skin system review: Negative for any recent abnormal bruising, no rash, no pruritus reported. Neurologic: No prior history of strokes, mini strokes, seizure disorder. Psychologic: No history of major psychosis or major depression reported. Musculoskeletal: Minor aches and pains reported. No acute joint swelling reported. Endocrine: No recent polyuria, polydipsia, recent heat or cold intolerance. Physical Exam Vital Signs: Temp Pulse Resp BP Pulse Ox 97.7 F 59 L 18 112/61 98 05/19/18 15:49 05/19/18 15:49 05/19/18 15:49 05/19/18 15:49 05/19/18 15:49 Intake & Output 05/18/18 05/19/18 05/20/18 06:59 06:59 06:59 Intake Total 941 Output Total 200 950 Balance -200 -9 Weight 109.1 kg Exam: GENERAL: well-nourished and in no acute distress. Alert and oriented x3 HEAD: Atraumatic, normocephalic. EYES: MARGARITA, sclera anicteric, conjunctiva are normal. ENT: Moist mucous membranes. No oral ulcerations or bleeding gums noted. No obvious ear, nose or throat abnormalities noted. NECK: supple without lymphadenopathy. Trachea is central. No cervical or axillary lymphadenopathy noted. Carotids are 2+, JVD WNL LUNGS: Breath sounds clear bilaterally. No wheezes rales or rhonchi noted. No significant dullness noted on percussion. CHEST: Palpation of the chest wall shows no significant chest wall tenderness. HEART: [place] [employer], No PSH, 1/6 JULIANA aortic area, 1/6 mclean systolic murmur mitral area, no rubs, no gallops. ABDOMEN: Soft, no significant tenderness appreciated, normoactive bowel sounds. No guarding, no rebound. No rigidity noted . No masses appreciated. EXTREMITIES: Pedal pulses are 1-2+, no calf tenderness noted. No clubbing or cyanosis. negative pedal edema noted NEUROLOGICAL: Focused neurological exam showed no significant neurologic deficit. Normal speech, no focal weakness appreciated. PSYCH: Normal mood, normal affect. Judgment and insight within normal limits. SKIN: No significant ecchymosis, skin is noted to be warm. MUSCULOSKELETAL EXAM: No significant acute joint swelling noted. Results Laboratory Results: 05/19/18 06:25 Triglycerides 109 Cholesterol 125.97 LDL Cholesterol Direct 47 VLDL Cholesterol 22.0 HDL Cholesterol 43 05/19/18 05/19/18 05/19/18 06:25 06:25 13:45 Creatine Kinase 41 L CK-MB (CK-2) 0.82 0.98 Troponin I 0.014 < 0.012 EKG Comments: Shows sinus bradycardia Impressions: Chest X-Ray 05/18/18 23:35 IMPRESSION: Clear lungs. Assessment & Plan - Diagnosis (1) Paroxysmal atrial fibrillation Is this a current diagnosis for this admission?: Yes (2) Chest pain Qualifiers: Chest pain type: unspecified Qualified Code(s): R07.9 - Chest pain, unspecified Is this a current diagnosis for this admission?: Yes (3) Coronary artery disease Qualifiers: Coronary Disease-Associated Artery/Lesion type: [place] artery [place] vs. transplanted heart: [place] heart Associated angina: angina presence unspecified Qualified Code(s): I25.10 - Atherosclerotic heart disease of [place] coronary artery without angina pectoris Is this a current diagnosis for this admission?: Yes (4) Obesity (BMI 30-39.9) Is this a current diagnosis for this admission?: Yes (5) HTN (hypertension) Qualifiers: Hypertension type: essential hypertension Qualified Code(s): I10 - Essential (primary) hypertension Is this a current diagnosis for this admission?: Yes - Notes Notes: Paroxysmal atrial fibrillation: 2D echocardiogram pending at the time of dictation. At this point agree with anticoagulation with Lovenox and rate control with low-dose beta-buffy. Long-term anticoagulation decision will be made later on. Patient's chads score is noted to be just 1 therefore could could well leave him just on Plavix or aspirin. Plavix is probably preferred in view of history of stents. Chest pain: To be evaluated with a nuclear stress test and this was scheduled. Hypertension: Blood pressure under satisfactory control. KATHARINE inhibitor/ARB/beta -buffy preferred. Coronary artery disease: Currently stable but patient had chest pain. Possibly related to atrial fibrillation. Have schedule patient for a stress test. Obesity: Obesity is linked atrial fibrillation as is sleep apnea syndrome. Patient will benefit from gradual weight loss and also a sleep study. This could be done as an outpatient. Will continue to follow patient. - Time Time Spent: 30 to 50 Minutes - More than 50% of the time spent coordinating care , discussing management plans with involved caregivers. Management plans discussed with involved personnels. Medical decision making was of moderate to high complexity, patient's has multiple comorbidities. Medications reviewed and adjusted accordingly: Yes
--- NOTE | 2018-05-19 20:00 | XCELERA REPORT ---
[address] [address] Transthoracic Echocardiogram Report Name: BRIANA SUAREZ Age: 63 yrs Gender: Male : 1955 Patient Status: Inpatient Patient Location: [address] [place] [address] Study Date: 05/19/2018 04:52 PM Procedure: A complete two-dimensional transthoracic echocardiogram was performed (2D, M-mode, spectral and color flow Doppler). The study was technically difficult with many images being suboptimal in quality. Reason For Study: A fib, RVR Ordering Physician: CLARY HARRIS Performed By: Lindsay Reynaga Interpretation Summary The study was technically difficult with many images being suboptimal in quality. Left ventricular systolic function is low normal. There is borderline concentric left ventricular hypertrophy. The left ventricle is grossly normal size. Wall motion cannot be accurately commented on, but no definite regional wall motion abnormalities noted. Borderline right ventricular enlargement. The right ventricular systolic function is normal. The right atrium is normal in size Borderline left atrial enlargement. There is no mitral regurgitation noted. There is no mitral valve stenosis. No aortic regurgitation is present. There is no aortic valve stenosis There is no pericardial effusion. MMode/2D Measurements & Calculations RVDd: 3.3 cm LVIDd: 5.4 cm FS: 27.9 % Ao root diam: 4.0 cm IVSd: 1.0 cm LVIDs: 3.9 cm EDV(Teich): 143.8 ml Ao root area: 12.3 cm2 LVPWd: 1.2 cm ESV(Teich): 66.9 ml LA dimension: 3.9 cm EF(Teich): 53.5 % LVOT diam: 2.0 cm LVOT area: 3.2 cm2 Doppler Measurements & Calculations MV E max rahul: MV P1/2t max rahul: Ao V2 max: LV V1 max P.7 cm/sec 82.1 cm/sec 100.4 cm/sec 1.9 mmHg MV A max rahul: MV P1/2t: 75.3 msec Ao max P.0 mmHg LV V1 max: 73.1 cm/sec 69.6 cm/sec MV E/A: 0.82 MVA(P1/2t): 2.9 cm2 URVASHI(V,D): 2.2 cm2 MV dec slope: 319.5 cm/sec2 MV dec time: 0.11 sec PA V2 max: TR max rahul: MV P1/2t-pr_phl: 103.8 cm/sec 215.3 cm/sec 75.3 msec PA max P.3 mmHgTR max P.5 mmHg Left Ventricle The left ventricle is grossly normal size. There is borderline concentric left ventricular hypertrophy. Left ventricular systolic function is low normal. LV diastolic function could not be adequately assessed due to atrial fibrilation. Wall motion cannot be accurately commented on, but no definite regional wall motion abnormalities noted. Right Ventricle Borderline right ventricular enlargement. There is normal right ventricular wall thickness. The right ventricular systolic function is normal. Atria The right atrium is normal in size. Borderline left atrial enlargement. Interarterial septum not well visualized and not well dopplered. Cannot comment on ASD/PFO presence. Mitral Valve The mitral valve leaflets are sclerotic, but show no functional abnormalities. There is no mitral valve stenosis. There is no mitral regurgitation noted. Aortic Valve The aortic valve is not well visualized secondary to technical limitations. There is no aortic valve stenosis. No aortic regurgitation is present. Tricuspid Valve The tricuspid valve is not well visualized secondary to technical limitations. There is no tricuspid stenosis. There is a trace or physiologic amount of tricuspid regurgitation. Tricuspid regurgitation jet envelope not well defined to measure RV systolic pressure accurately. Pulmonic Valve The pulmonic valve is not well visualized. Great Vessels The aortic root is not well visualized but is probably normal size. The inferior vena cava was not well visualized. Effusions There is no pericardial effusion. : CLARY HARRIS > Clary Harris
[2018-05-19] MEDS ORDERED: ATORVASTATIN CALCIUM 80 MG TABLET PO SCH (22:00)
--- NOTE | 2018-05-19 22:01 | EKG REPORT ---
SEVERITY:- ABNORMAL ECG - SINUS RHYTHM PROBABLE INFERIOR INFARCT, AGE INDETERMINATE : Confirmed by: Clary Morrison 19-May-2018 22:00:31
[2018-05-20 05:33] LABS: CHOLESTEROL 115.91 mg/dL (0-200); CREATINE KINASE 96 U/L (55-170); TRIGLYCERIDES 96 mg/dL (<150)
[2018-05-20 05:44] LABS: DIRECT LDL 59 mg/dL (<100)
--- NOTE | 2018-05-20 09:53 | EKG REPORT ---
SEVERITY:- ABNORMAL ECG - SINUS RHYTHM PROBABLE INFERIOR INFARCT, AGE INDETERMINATE : Confirmed by: Clary Morrison 20-May-2018 09:53:17
[2018-05-20] MEDS: LOSARTAN POTASSIUM 25 MG TABLET PO SCH (11:09)
[2018-05-20] MEDS: APIXABAN 5 MG TABLET PO SCH (11:09)
[2018-05-20] MEDS: ASPIRIN 325 MG TABLET, ENT COATED PO SCH (11:09)
[2018-05-20] MEDS: DOCUSATE SODIUM 100 MG CAPSULE PO SCH (11:09)
--- NOTE | 2018-05-20 11:43 | PDOC PROGRESS REPORT ---
Subjective Progress Note for:: 05/20/18 Subjective:: Patient seems to be doing better. Patient completed nuclear stress test without any complications. Transient bradycardia was noted but noticed heart rate recorded was 48. Patient did complain of being very sleepy and drowsy, which responded to p.o. caffeine and IV Aminophyllin. Patient had no chest pain or any other arrhythmias except for mild sinus bradycardia or any other significant symptoms during the stress test. Currently pt is denying any chest arm or neck discomfort. Patient denying any PND, orthopnea. Patient denied any sustained palpitations, dizziness, syncope, near syncope. Patient denying any fever chills. Patient denying any other significant discomfort. Patient is maintaining sinus rhythm. Patient remains intermittently bradycardic but with normal blood pressure and asymptomatic. Review of systems: Rest review of systems negative. Medications: Medications have been reviewed. Reason For Visit: CHEST PAIN, ATRIAL FIBRILLATION Physical Exam Vital Signs: Temp Pulse Resp BP Pulse Ox 97.8 F 50 L 18 129/68 H 98 05/20/18 07:39 05/20/18 07:39 05/20/18 07:39 05/20/18 07:39 05/20/18 07:39 Pulse Oximeter Nocturnal Start: 05/19/18 22: 26 Freq: RTCONT Status: Active Document 05/19/18 22:15 CBR (Rec: 05/20/18 04:36 CBR [id number]) Nocturnal Pulse Oximetry Equipment Usage Initial Set Up Nocturnal Spo2 Charge Charge Now Oxygen Delivery Method (includes room Room Air air) O2 Sat by Pulse Oximetry (92-100) 97 Continuous Pulse Oximeter Set Up Yes Continuous SpO2 Discontinued No Continuous SpO2 Machine # 1 Intake & Output 05/19/18 05/20/18 05/21/18 06:59 06:59 06:59 Intake Total 1178 0 Output Total 200 2200 Balance -200 -1022 0 Weight 109.1 kg 108.6 kg Exam: GENERAL: well-nourished and in no acute distress. Alert and oriented x3 HEAD: Atraumatic, normocephalic. EYES: MARGARITA, sclera anicteric, conjunctiva are normal. ENT: Moist mucous membranes. No oral ulcerations or bleeding gums noted. No obvious ear, nose or throat abnormalities noted. NECK: supple without lymphadenopathy. Trachea is central. No cervical or axillary lymphadenopathy noted. Carotids are 2+, JVD WNL LUNGS: Breath sounds clear bilaterally. No wheezes rales or rhonchi noted. No significant dullness noted on percussion. CHEST: Palpation of the chest wall shows no significant chest wall tenderness. HEART: [place] [employer], No PSH, 1/6 JULIANA aortic area, 1/6 mclean systolic murmur mitral area, no rubs, no gallops. ABDOMEN: Soft, no significant tenderness appreciated, normoactive bowel sounds. No guarding, no rebound. No rigidity noted . No masses appreciated. EXTREMITIES: Pedal pulses are 1-2+, no calf tenderness noted. No clubbing or cyanosis. negative pedal edema noted NEUROLOGICAL: Focused neurological exam showed no significant neurologic deficit. Normal speech, no focal weakness appreciated. PSYCH: Normal mood, normal affect. Judgment and insight within normal limits. SKIN: No significant ecchymosis, skin is noted to be warm. MUSCULOSKELETAL EXAM: No significant acute joint swelling noted. Results Laboratory Results: 05/20/18 04:25 Triglycerides 96 Cholesterol 115.91 LDL Cholesterol Direct 59 VLDL Cholesterol 19.0 HDL Cholesterol 48 05/19/18 05/19/18 05/19/18 06:25 06:25 13:45 Creatine Kinase 41 L CK-MB (CK-2) 0.82 0.98 Troponin I 0.014 < 0.012 05/20/18 04:25 Creatine Kinase 96 CK-MB (CK-2) Troponin I EKG Comments: Shows intermittent mild sinus bradycardia Impressions: Chest X-Ray 05/18/18 23:35 IMPRESSION: Clear lungs. Assessment & Plan - Diagnosis (1) Paroxysmal atrial fibrillation Is this a current diagnosis for this admission?: Yes (2) Chest pain Qualifiers: Chest pain type: unspecified Qualified Code(s): R07.9 - Chest pain, unspecified Is this a current diagnosis for this admission?: Yes (3) Coronary artery disease Qualifiers: Coronary Disease-Associated Artery/Lesion type: [place] artery [place] vs. transplanted heart: [place] heart Associated angina: angina presence unspecified Qualified Code(s): I25.10 - Atherosclerotic heart disease of [place] coronary artery without angina pectoris Is this a current diagnosis for this admission?: Yes (4) Obesity (BMI 30-39.9) Is this a current diagnosis for this admission?: Yes (5) HTN (hypertension) Qualifiers: Hypertension type: essential hypertension Qualified Code(s): I10 - Essential (primary) hypertension Is this a current diagnosis for this admission?: Yes - Notes Notes: Paroxysmal atrial fibrillation: 2D echocardiogram showed lower limit of normal LVEF. No high risk features noted. Patient's chads score is noted to be just 1 therefore could could well leave him just on Plavix or aspirin. Since atrial fibrillation was transient, less than 24 hours, no need for chronic anticoagulation. Plavix is probably preferred in view of history of stents. Would not recommend any antiarrhythmic at this point unless there is recurrence of atrial fibrillation. Bradycardia: Intermittent. Patient noted to be asymptomatic. No need for pacemaker at this point but would recommend cardiac event monitor and a sleep study as an outpatient. In the sleep lab, patient observed to have possible central sleep apnea. He was noted to fall asleep during the procedure. Chest pain: Nuclear stress test negative for pharmacologic stress-induced ischemia. Nuclear stress test results were reviewed with the patient. Questions answered. Hypertension: Blood pressure under satisfactory control. KATHARINE inhibitor/ARB/beta -buffy preferred. Coronary artery disease: Currently stable but patient had chest pain. Possibly related to atrial fibrillation. Nuclear stress test was negative for any pharmacologic stress-induced ischemia. Obesity: Obesity is linked atrial fibrillation as is sleep apnea syndrome. Patient will benefit from gradual weight loss and also a sleep study. This could be done as an outpatient. Will continue to follow patient. - Time Time with patient: Greater than 35 minutes - Patient was seen multiple times. Total time exceeds 40 minutes. In the morning nuclear stress test procedure, risks benefits, alternatives were discussed. Patient seen during the stress test. Patient also seen after stress test when results were discussed with the patient in detail. Patient's questions were answered. Nuclear stress test results were discussed with the patient. Patient was informed that no definitive evidence of pharmacologic stress-induced ischemia noted. No definite fixed defects were noted. Patient informed that occasionally significant single vessel disease or balanced ischemia could be missed. However based on the current study results, would recommend aggressive risk factor modification and medical therapy. It may also be worthwhile to consider evaluation or empiric management of other causes of chest pain. Should no other cause be found and if persistent in having chest pain, then cardiac catheterization should be considered. Right now, recommendations are for aggressive risk factor modification and medical management. Medications reviewed and adjusted accordingly: Yes
--- NOTE | 2018-05-20 11:46 | DRAGON STRESS TEST REPORT ---
INTRAVENOUS LEXISCAN CARDIOLITE STRESS TEST USING SINGLE PHOTON EMMISION COMPUTERIZED TOMOGRAPHIC. DATE OF PROCEDURE: May 20, 2018, INDICATION : Chest pain, paroxysmal atrial fibrillation CARDIAC RISK FACTORS: Hypertension, dyslipidemia RESTING EKG: Sinus rhythm, no baseline ST-T wave changes noted STRESS EKG: No significant ST segment changes noted with LexiScan bolus REASON FOR TERMINATION: Protocol. PROCEDURE REPORT: Baseline heart rate 64 beats per minute with blood pressure of 116/66. Patient had no significant complaints. Patient was bolused with Lexiscan 0.4 mg intravenously followed by saline bolus. Heart rate at 2 minutes post bolus 71 with a blood pressure of 110/56. Minimum heart rate occurred at 3 minutes with heart rate of 48 and blood pressure of 138/52. 6 minutes post bolus heart rate 58 with blood pressure of 122/60. No significant EKG changes were noted. Patient had no significant complaints during the procedure or postprocedure. CONCLUSIONS: Normal EKG and hemodynamic response to IV LexiScan. NUCLEAR DATA: At rest the patient was given 15.27 millicuries of technetium 99 sestamibi injected intravenously. As per protocol rest gated SPECT images were obtained. On day of stress test, the patient was given intravenous LexiScan at a dose of 0.4 mg in 5 mL intravenously, followed by flush with normal saline. Subsequently the stress dose of 46.6 millicuries of technetium 99 sestamibi was injected intravenously. As per protocol stress gated images were obtained. NUCLEAR INTERPRETATION: Both raw and processed data were used for interpretation. Visual, qualitative, computer-generated quantitative data was used. There was good myocardial uptake of technetium compound. Motion artifact and soft tissue attenuations were noted. Increased visceral uptake was noted. No definitive areas of transient perfusion defect noted, No definitive areas of fixed perfusion defect or scars noted. EKG gated imaging showed LV EF at 68 %, rest and stress gated EF similar visually. T. I D. ratio was 0.95. Lung heart ratio noted to be within normal limits 0.36. No significant extracardiac and abnormal radiotracer activities were noted. RV free wall uptake was noted to be WNL. IMPRESSION: Also refer to comments under nuclear interpretation. Also test results needs to be interpreted in the context of pretest probability. 1. No definitive areas of transient perfusion defect noted. 2. There is no definitive scintigraphic evidence of myocardial infarction/scar. 3. EKG gated imaging shows left ventricular ejection fraction of approx. 68 %. 4. Clinical correlation requested as worse disease and or balanced ischemia could be missed. In approximately 10% of the cases Lexiscan may not cause adequate vasodilatory stress. RECOMMENDATIONS: Aggressive risk factor modification and medical management. Further evaluation may be needed if continued symptoms or other high risk indicators are noted on clinical evaluation. Close cardiology follow-up is also recommended. Clinical correlation with echocardiogram derived ejection fraction. Inability to exercise by itself can lead to increased cardiovascular event risks. Consider cardiology consultation and or follow-up if clinically indicated. I am available for cardiology evaluation and consultation if requested by the primary health care nurse, unless patient already has a business information consultant. Dr. Berhane Morrison. MRCP Board certified in cardiology and sleep medicine. Board certified in nuclear cardiology, adult echocardiography. LOUIE
--- NOTE | 2018-05-20 13:58 | PDOC DISCHARGE SUMMARY ---
General - Admit/Disc Date/PCP Admission Date/Primary Care Provider: 05/19/18 02:03 Discharge Date: 05/20/18 - Discharge Diagnosis (1) Atrial fibrillation Is this a current diagnosis for this admission?: Yes (2) Chest pain Is this a current diagnosis for this admission?: Yes (3) Diastolic heart failure Is this a current diagnosis for this admission?: Yes (4) HTN (hypertension) Is this a current diagnosis for this admission?: Yes (5) Coronary artery disease Is this a current diagnosis for this admission?: Yes (6) Obesity (BMI 30-39.9) Is this a current diagnosis for this admission?: Yes - Additional Information Resuscitation Status: Full Code Discharge Diet: As Tolerated, Cardiac Discharge Activity: Activity As Tolerated Prescriptions: Atorvastatin Calcium 40 mg PO DAILY #30 tablet Clopidogrel Bisulfate [Plavix 75 mg Tablet] 75 mg PO DAILY #30 tablet Losartan Potassium [Cozaar 25 mg Tablet] 25 mg PO DAILY #30 tablet Metoprolol Tartrate [Lopressor 25 mg Tablet] 12.5 mg PO Q12 #60 tablet Home Medications: Furosemide [Lasix 40 mg Tablet] 40 mg PO DAILY 05/19/18 Polyethylene Glycol 3350 [Clearlax] 34 gm PO DAILY 05/19/18 Atorvastatin Calcium 40 mg PO DAILY #30 tablet 05/20/18 Clopidogrel Bisulfate [Plavix 75 mg Tablet] 75 mg PO DAILY #30 tablet 05/20/18 Losartan Potassium [Cozaar 25 mg Tablet] 25 mg PO DAILY #30 tablet 05/20/18 Metoprolol Tartrate [Lopressor 25 mg Tablet] 12.5 mg PO Q12 #60 tablet 05/20/18 History of Present Illness Patient complains of: Rapid heart rate History of Present Illness: BRIANA SUAREZ is a 63 year old male Hospital Course Hospital Course: Patient presented to the emergency room with atrial fibrillation around ventricular response. He is admitted to a telemetry bed and placed on IV Cardizem. He spontaneously converted to a sinus bradycardia. Consultation with cardiology was obtained. He underwent an echocardiogram which showed no structural abnormality of the heart and low normal ejection fraction. Because of his history of underlying coronary artery disease he was given a stress test which showed no inducible ischemia. He was discharged on a low-dose of Cozaar and metoprolol. His chads score was 1 and it was recommended but rather Plavix. He was also restarted on his statin Lipitor 40 mg daily. It is recommended he follow-up with rubber roller grinder in 2-4 weeks. Physical Exam Vital Signs: Temp Pulse Resp BP Pulse Ox 97.6 F 69 20 105/81 97 05/20/18 11:12 05/20/18 11:12 05/20/18 11:12 05/20/18 11:12 05/20/18 11:12 Pulse Oximeter Nocturnal Start: 05/19/18 22: 26 Freq: RTCONT Status: Active Document 05/19/18 22:15 CBR (Rec: 05/20/18 04:36 CBR [email or web address]) Nocturnal Pulse Oximetry Equipment Usage Initial Set Up Nocturnal Spo2 Charge Charge Now Oxygen Delivery Method (includes room Room Air air) O2 Sat by Pulse Oximetry (92-100) 97 Continuous Pulse Oximeter Set Up Yes Continuous SpO2 Discontinued No Continuous SpO2 Machine # 1 Intake & Output 05/19/18 05/20/18 05/21/18 06:59 06:59 06:59 Intake Total 1178 711 Output Total 200 2200 250 Balance -200 -1022 461 Weight 109.1 kg 108.6 kg General appearance: PRESENT: no acute distress, well-developed, well-nourished Neck exam: ABSENT: carotid bruit, JVD, lymphadenopathy, thyromegaly Respiratory exam: PRESENT: clear to auscultation tank. ABSENT: rales, rhonchi, wheezes Cardiovascular exam: PRESENT: RRR. ABSENT: diastolic murmur, rubs, systolic murmur GI/Abdominal exam: PRESENT: normal bowel sounds, soft. ABSENT: distended, guarding, mass, organolmegaly, rebound, tenderness Extremities exam: PRESENT: full ROM. ABSENT: calf tenderness, clubbing, pedal edema Results Laboratory Results: 05/20/18 04:25 Triglycerides 96 Cholesterol 115.91 LDL Cholesterol Direct 59 VLDL Cholesterol 19.0 HDL Cholesterol 48 05/19/18 05/19/18 05/19/18 06:25 06:25 13:45 Creatine Kinase 41 L CK-MB (CK-2) 0.82 0.98 Troponin I 0.014 < 0.012 05/20/18 04:25 Creatine Kinase 96 CK-MB (CK-2) Troponin I Impressions: Chest X-Ray 05/18/18 23:35 IMPRESSION: Clear lungs. Qualifiers - * PATIENT BEING DISCHARGED WITH ANY OF THE FOLLOWING DIAGNOSIS: No Plan Time Spent: Greater than 30 Minutes
[2018-05-20 14:29] VITALS: BP 115/68
[2018-05-20] MEDS ORDERED: AMINOPHYLLINE INJ/PF 250 MG/10 ML SDV IV ONE (16:07)
[2018-05-20] MEDS ORDERED: REGADENOSON INJ 0.4 MG/5 ML DISP.SYRIN IV ONE (16:07)
--- NOTE | 2018-05-21 08:46 | EKG REPORT ---
SEVERITY:- ABNORMAL ECG - SINUS RHYTHM PROBABLE INFERIOR INFARCT, AGE INDETERMINATE : Confirmed on behalf of: Clary Morrison 21-May-2018 08:45:27
== END 2018-05-20 15:20 | DRG 309 ==
LOC: ER 22:53 → OBSVTOIN 05-19 02:03 → EH 05-19 02:03 → 3S 05-19 04:08
PROVIDERS: ADMIT Internal Medicine; ATTEND Internal Medicine
PROC: 5A09357 Assistance with Respiratory Ventilation, Less than 24 Consecutive Hours, Continuous Positive Airway Pressure (ICD-10-PCS; principal; 2018-05-19)
PROC: 3E02340 Introduction of Influenza Vaccine into Muscle, Percutaneous Approach (ICD-10-PCS; 2018-05-20)
DX: I48.0 Paroxysmal atrial fibrillation (principal); Q61.3 Polycystic kidney, unspecified; I50.32 Chronic diastolic (congestive) heart failure; I11.0 Hypertensive heart disease with heart failure; I25.10 Atherosclerotic heart disease of native coronary artery without angina pectoris; R00.1 Bradycardia, unspecified; E78.00 Pure hypercholesterolemia, unspecified; J44.9 Chronic obstructive pulmonary disease, unspecified; F32.9 Major depressive disorder, single episode, unspecified; K21.9 Gastro-esophageal reflux disease without esophagitis; G47.33 Obstructive sleep apnea (adult) (pediatric); I45.81 Long QT syndrome; E66.9 Obesity, unspecified; Z68.30 Body mass index [BMI] 30.0-30.9, adult; I25.2 Old myocardial infarction; Z23 Encounter for immunization; Z79.899 Other long term (current) drug therapy; Z90.5 Acquired absence of kidney; Z95.5 Presence of coronary angioplasty implant and graft; Z90.49 Acquired absence of other specified parts of digestive tract; Z87.891 Personal history of nicotine dependence; Z82.3 Family history of stroke; Z82.49 Family history of ischemic heart disease and other diseases of the circulatory system; Z84.1 Family history of disorders of kidney and ureter
CPT/HCPCS: 36415; 71045; 78452; 80053; 80061; 80307; 82550; 82553; 83735; 84443; 84484; 85025; 90686; 93005; 93010; 93017; 93306; 94762; 96374; 96375; 99285; A9500; J0280; J1650; J1940; J2785; J3490; Q9969

== ENCOUNTER → 2018-08-07 | Outpatient (CLI) | payer OTHER ==
[2018-08-07 15:59] LABS: HEMATOCRIT 44.6 % (37.9-51.0); HEMOGLOBIN 15.2 g/dL (13.5-17.0); MEAN CORPUSCULAR HEMOGLOBIN 33.2 pg (27.0-33.4); MEAN CORPUSCULAR HGB CONC 34.1 g/dL (32.0-36.0); MEAN CORPUSCULAR VOLUME 97 fl (80-97); PLATELET COUNT 170 10^3/uL (150-450); RED BLOOD COUNT 4.58 10^6/uL (4.35-5.55); RED CELL DISTRIBUTION WIDTH 13.6 % (11.5-14.0); WHITE BLOOD COUNT 7.9 10^3/uL (4.0-10.5)
[2018-08-07 16:26] LABS: ALANINE AMINOTRANSFERASE 42 U/L (21-72); ALBUMIN 4.3 g/dL (3.5-5.0); ALKALINE PHOSPHATASE 82 U/L (38-126); ANION GAP 8 (5-19); ASPARTATE AMINO TRANSFERASE 35 U/L (17-59); BILIRUBIN,DIRECT 0.2 mg/dL (0.0-0.4); BILIRUBIN,TOTAL 0.7 mg/dL (0.2-1.3); BLOOD UREA NITROGEN 20 mg/dL (7-20); CALCIUM 9.1 mg/dL (8.4-10.2); CARBON DIOXIDE 31 mmol/L (22-30); CHLORIDE 102 mmol/L (98-107); CHOLESTEROL 103.46 mg/dL (0-200); GLUCOSE 94 mg/dL (75-110); POTASSIUM 4.3 mmol/L (3.6-5.0); SODIUM 140.8 mmol/L (137-145); TOTAL PROTEIN 6.8 g/dL (6.3-8.2); TRIGLYCERIDES 112 mg/dL (<150)
[2018-08-07 16:37] LABS: DIRECT LDL 38 mg/dL (<100)
== END ==
LOC: LAB 15:42
PROVIDERS: ATTEND Internal Medicine Pulmonary Disease
DX: I11.0 Hypertensive heart disease with heart failure (principal); I50.30 Unspecified diastolic (congestive) heart failure
CPT/HCPCS: 36415; 80053; 80061; 83880; 84443; 85027

== ENCOUNTER → 2018-08-31 | Outpatient (CLI) | payer OTHER ==
--- NOTE | 2018-08-31 12:10 | RADIOLOGY REPORT (SQ) ---
EXAM DESCRIPTION: U/S RETROPERITON (RENAL/AORTA) COMPLETED DATE/TIME: 08/31/2018 11:46 am REASON FOR STUDY: RENAL MASS COMPARISON: CT abdomen pelvis 03/01/2018, 02/11/2018 TECHNIQUE: Dynamic and static grayscale images acquired of the kidneys and bladder and recorded on P ACS. Additional selected color Doppler and spectral images recorded. LIMITATIONS: None. FINDINGS: RIGHT KIDNEY: Normal size, 12.4 cm in length. Normal echogenicity. No solid or suspicious masses. 3 cm cyst in the right lower pole kidney. This is similar compared to CT 03/01/2018. 14 mm r ight lower pole cortical cyst, similar compared to CT 03/01/2018. No hydronephrosis. No calcifications . LEFT KIDNEY: Post left nephrectomy. BLADDER: No masses. OTHER FINDINGS: No other significant finding. IMPRESSION: Benign-appearing right renal cortical cysts TECHNICAL DOCUMENTATION: JOB ID: [id number] [employer]- All Rights Reserved Reading location - IP/workstation name: [email or web address]
== END ==
LOC: RAD 11:04
PROVIDERS: ATTEND Family Medicine
DX: N28.89 Other specified disorders of kidney and ureter (principal); Q61.02 Congenital multiple renal cysts
CPT/HCPCS: 76770

== ENCOUNTER → 2018-11-22 | Outpatient (CLI) | payer OTHER ==
--- NOTE | 2018-11-22 19:12 | XCELERA REPORT ---
[address] [address] Transthoracic Echocardiogram Report Name: BRIANA SUAREZ Age: 63 yrs Gender: Male : 1955 Patient Status: Outpatient Patient Location: Study Date: 11/22/2018 10:57 AM Height: 68 in Weight: 246 lb BSA: 2.2 m2 Procedure: A complete two-dimensional transthoracic echocardiogram was performed (2D, M-mode, spectral and color flow Doppler). The study was technically difficult with many images being suboptimal in quality. Reason For Study: CP Ordering Physician: GILDARDO PIERSON Performed By: Juliane Malik Interpretation Summary Left ventricular systolic function is low normal. There is borderline concentric left ventricular hypertrophy. The left ventricle is grossly normal size. Doppler measurements suggest impaired left ventricular relaxation, which is associated with grade I/IV or mild diastolic dysfunction Regional wall motion abnormalities cannot be excluded due to limited visualization. The right ventricular systolic function is normal. The right ventricle is mildly dilated. The right atrium is mildly dilated. Borderline left atrial enlargement. There is no mitral regurgitation noted. There is no mitral valve stenosis. No aortic regurgitation is present. There is no aortic valve stenosis There is a trace or physiologic amount of tricuspid regurgitation Tricuspid regurgitation jet envelope not well defined to measure RV systolic pressure accurately. The aortic root is not well visualized but is probably normal size. The inferior vena cava appeared normal and decreased > 50% with respiration (RAP 5-10 mmHg) There is no pericardial effusion. MMode/2D Measurements & Calculations RVDd: 2.9 cm LVIDd: 4.8 cm FS: 39.8 % Ao root diam: 3.5 cm IVSd: 0.75 cm LVIDs: 2.9 cm EDV(Teich): 108.3 ml Ao root area: 9.8 cm2 LVPWd: 0.93 cm ESV(Teich): 32.1 ml EF(Teich): 70.3 % Doppler Measurements & Calculations MV E max rahul: MV dec slope: Ao V2 max: LV V1 max P.2 cm/sec 334.8 cm/sec2 133.8 cm/sec 4.3 mmHg MV A max rahul: MV dec time: 0.22 secAo max PG: LV V1 max: 17.9 cm/sec 7.2 mmHg 104.1 cm/sec MV E/A: 4.2 PA V2 max: TR max rahul: 102.6 cm/sec 195.1 cm/sec PA max P.2 mmHg TR max P.2 mmHg Left Ventricle The left ventricle is grossly normal size. There is borderline concentric left ventricular hypertrophy. Left ventricular systolic function is low normal. Doppler measurements suggest impaired left ventricular relaxation, which is associated with grade I/IV or mild diastolic dysfunction. Regional wall motion abnormalities cannot be excluded due to limited visualization. Right Ventricle The right ventricle is mildly dilated. There is normal right ventricular wall thickness. The right ventricular systolic function is normal. Atria The right atrium is mildly dilated. Borderline left atrial enlargement. Interarterial septum not well visualized and not well dopplered. Cannot comment on ASD/PFO presence. Mitral Valve The mitral valve is grossly normal. There is no mitral valve stenosis. There is no mitral regurgitation noted. Aortic Valve The aortic valve is grossly normal. There is no aortic valve stenosis. No aortic regurgitation is present. Tricuspid Valve The tricuspid valve is not well visualized, but is grossly normal. There is no tricuspid stenosis. There is a trace or physiologic amount of tricuspid regurgitation. Tricuspid regurgitation jet envelope not well defined to measure RV systolic pressure accurately. Pulmonic Valve The pulmonic valve is not well visualized. Great Vessels The aortic root is not well visualized but is probably normal size. The inferior vena cava appeared normal and decreased > 50% with respiration (RAP 5-10 mmHg). Effusions There is no pericardial effusion. : GILDARDO PIERSON > Clary Morrison
== END ==
LOC: SP 10:38
PROVIDERS: ATTEND Family Medicine
DX: R07.9 Chest pain, unspecified (principal)
CPT/HCPCS: 93306

== ENCOUNTER 2019-02-27 20:40 | Emergency (ER) | payer OTHER ==
--- NOTE | 2019-02-27 20:51 | ER Document Report ---
ED General - General Stated Complaint: CHEST PAIN Time Seen by Provider: 02/27/19 20:51 Primary Care Provider: GILDARDO PIERSON MD [NO LOCAL MD] - Follow up as needed TRAVEL OUTSIDE OF THE [place] IN LAST 30 DAYS: No - HPI Patient complains to provider of: chest pain Notes: 64-year-old male with history of cardiac disease and stenting presents with 3 days of increasing chest pain 8/10 crushing in nature without radiation nothing makes it better or worse. Says it is constant. Patient also endorsing a one- week history of decreased exercise tolerance. Patient denies any orthopnea leg swelling. Denies nausea vomiting. Patient also takes daily Eliquis and Plavix. He is not sure why he is on 2 of these blood thinners he has not had a cardiac stent placed in over 2 years. - Related Data Allergies/Adverse Reactions: No Known Allergies Allergy (Verified 02/11/18 08:11) Past Medical History - Social History Smoking Status: Unknown if Ever Smoked Family History: CAD, Other - Polycystic kidney disease and stroke - Past Medical History Cardiac Medical History: Reports: Hx Congestive Heart Failure, Hx Coronary Artery Disease, Hx Heart Attack - 2011 with one stent, Hx Hypercholesterolemia, Hx Hypertension Pulmonary Medical History: Reports: Hx COPD Renal/ Medical History: Reports: Hx Kidney Stones. Denies: Hx Peritoneal Dialysis Psychiatric Medical History: Reports: Hx Depression - when Past Surgical History: Reports: Hx Cholecystectomy, Hx Coronary Stent, Hx Kidney (Renal Surgery) - Left Nepherctomy - Immunizations Hx Diphtheria, Pertussis, Tetanus Vaccination: Yes Hx Pneumococcal Vaccination: 04/29/14 Review of Systems - Review of Systems Notes: REVIEW OF SYSTEMS: CONSTITUTIONAL: -fevers, -chills EENT: -eye pain, -difficulty swallowing, -nasal congestion CARDIOVASCULAR: positive chest pain, -syncope. RESPIRATORY: -cough, -SOB GASTROINTESTINAL: -abdominal pain, -nausea, -vomiting, -diarrhea GENITOURINARY: -dysuria, -hematuria MUSCULOSKELETAL: -back pain, -neck pain SKIN: -rash or skin lesions. HEMATOLOGIC: -easy bruising or bleeding. LYMPHATIC: -swollen, enlarged glands. NEUROLOGICAL: -altered mental status or loss of consciousness, -headache, - neurologic symptoms PSYCHIATRIC: -anxiety, -depression. ALL OTHER SYSTEMS REVIEWED AND NEGATIVE. Physical Exam - Vital signs Vitals: Resp Pulse Ox 16 97 02/27/19 20:51 02/27/19 20:51 - Notes Notes: PHYSICAL EXAMINATION: GENERAL: Well-appearing, well-nourished and in no acute distress. HEAD: Atraumatic, normocephalic. EYES: Pupils equal round and reactive to light, extraocular movements intact, sclera anicteric, conjunctiva are normal. ENT: nares patent, oropharynx clear without exudates. Moist mucous membranes. NECK: Normal range of motion, supple without lymphadenopathy LUNGS: Breath sounds clear to auscultation bilaterally and equal. No wheezes r ales or rhonchi. HEART: Regular rate and rhythm without murmurs ABDOMEN: Soft, nontender, normoactive bowel sounds. No guarding, no rebound. No masses appreciated. EXTREMITIES: Normal range of motion, no pitting or edema. No cyanosis. NEUROLOGICAL: Cranial nerves grossly intact. Normal speech, normal gait. Normal sensory and motor exams. PSYCH: Normal mood, normal affect. SKIN: Warm, Dry, normal turgor, no rashes or lesions noted. Course - Re-evaluation Re-evalutation: 02/27/19 22:57 64-year-old male presents with several days of chest pain constant in nature do not change with exertion. Decreased exercise tolerance. Patient's EKG is no ischemic changes. Patient's troponin negative. Patient's proBNP within normal limits. Patient is currently a resident of the [facility]. Will d/c home with follow-up at the [facility] for provacative study. If anything should change or worsen please return to the emergency department. - Vital Signs Vital signs: Temp Pulse Resp BP Pulse Ox 98.2 F 16 114/98 H 98 02/27/19 20:59 02/27/19 21:01 02/27/19 21:01 02/27/19 21:01 - Laboratory Result Diagrams: 02/27/19 20:45 02/27/19 20:45 Laboratory results interpreted by me: 02/27/19 02/27/19 20:45 20:45 RBC 4.11 L Direct Bilirubin 0.6 H - EKG Interpretation by Ri EKG shows normal: Sinus rhythm Rate: Normal Additional EKG results interpreted by me: 02/27/19 20:59 Normal sinus rhythm, first-degree heart block, no ST elevations or depressions no pathologic T wave inversions. Normal QRS Discharge - Discharge Clinical Impression: Chest pain Qualifiers: Chest pain type: other chest pain Qualified Code(s): R07.89 - Other chest pain; R07.8 - Other chest pain Condition: Stable Disposition: HOME, SELF-CARE Instructions: Chest Pain of Unclear Cause ([facility]) Additional Instructions: See a advertising manager in the next few days for provocative study Referrals: GILDARDO PIERSON MD [NO LOCAL MD] - Follow up as needed
[2019-02-27 21:12] LABS: ABSOLUTE BASOPHILS # (AUTO) 0.1 10^3/uL (0.0-0.2); ABSOLUTE EOSINOPHILS # (AUTO) 0.4 10^3/uL (0.0-0.6); ABSOLUTE LYMPHOCYTES (AUTO) 2.3 10^3/uL (0.5-4.7); ABSOLUTE MONOCYTES (AUTO) 0.8 10^3/uL (0.1-1.4); MEAN CORPUSCULAR HEMOGLOBIN 32.8 pg (27.0-33.4); TOTAL CELLS COUNTED % (AUTO) 100 %
[2019-02-27 21:16] LABS: ABSOLUTE NEUT (AUTO) 5.1 10^3/uL (1.7-8.2); BASOPHILS % (AUTO) 0.6 % (0-2); EOSINOPHILS % (AUTO) 5.1 % (0-6); HEMATOCRIT 39.7 % (37.9-51.0); HEMOGLOBIN 13.5 g/dL (13.5-17.0); LYMPHOCYTES % (AUTO) 26.3 % (13-45); MEAN CORPUSCULAR HGB CONC 33.9 g/dL (32.0-36.0); MEAN CORPUSCULAR VOLUME 97 fl (80-97); PLATELET COUNT 171 10^3/uL (150-450); RED BLOOD COUNT 4.11 10^6/uL (4.35-5.55); RED CELL DISTRIBUTION WIDTH 13.4 % (11.5-14.0); WHITE BLOOD COUNT 8.6 10^3/uL (4.0-10.5)
[2019-02-27 21:30] LABS: ALBUMIN 3.6 g/dL (3.5-5.0); ALKALINE PHOSPHATASE 89 U/L (38-126); ANION GAP 8 (5-19); ASPARTATE AMINO TRANSFERASE 58 U/L (17-59); BILIRUBIN,DIRECT 0.6 mg/dL (0.0-0.4); BLOOD UREA NITROGEN 18 mg/dL (7-20); CALCIUM 8.6 mg/dL (8.4-10.2); CARBON DIOXIDE 28 mmol/L (22-30); CHLORIDE 103 mmol/L (98-107); GLUCOSE 91 mg/dL (75-110); POTASSIUM 4.4 mmol/L (3.6-5.0); TOTAL PROTEIN 6.4 g/dL (6.3-8.2)
[2019-02-27 21:40] LABS: NT PRO BNP 151 pg/mL (5-900); TROPONIN I < 0.012 ng/mL
--- NOTE | 2019-02-27 21:42 | RADIOLOGY REPORT (SQ) ---
EXAM DESCRIPTION: XR CHEST 1 VIEW COMPLETED DATE/TME: 02/27/2019 20:57 CLINICAL HISTORY: 64 years, Male, chest pain COMPARISON: 05/06/2014 chest x-ray NUMBER OF VIEWS: 1 TECHNIQUE: Portable chest LIMITATIONS: None. FINDINGS: Heart size is normal. Osteopenia. Subsegmental atelectasis left lung base. No pneumothorax IMPRESSION: No acute cardiopulmonary process copyright 2010 [employer]- All Rights Reserved
[2019-02-27 23:11] VITALS: BP 117/70
--- NOTE | 2019-02-28 07:56 | EKG REPORT ---
SEVERITY:- ABNORMAL ECG - SINUS RHYTHM PROBABLE INFERIOR INFARCT, AGE INDETERMINATE : Confirmed by: Mendel Carey MD 28-Feb-2019 07:56:00
== END 2019-02-27 23:15 | disposition home or self-care (01) ==
LOC: ER 20:40
DX: R07.89 Other chest pain (principal); I50.9 Heart failure, unspecified; I25.10 Atherosclerotic heart disease of native coronary artery without angina pectoris; E78.00 Pure hypercholesterolemia, unspecified; I11.0 Hypertensive heart disease with heart failure; I25.2 Old myocardial infarction; Z87.442 Personal history of urinary calculi; Z90.49 Acquired absence of other specified parts of digestive tract
CPT/HCPCS: 36415; 71045; 80053; 83880; 84484; 85025; 93005; 93010